=== PATIENT | male | born 1960 | race Caucasian/White ===

== ENCOUNTER 2016-12-31 20:46 | Emergency (ER) | payer MEDICAID ==
[~2016-12-31] VITALS: Ht 165.1 cm; Wt 113.4 kg
[2016-12-31] MEDS ORDERED: Morphine Sulfate 4mg/ml Inj IVP ONE (21:30)
[2016-12-31 21:32] LABS: MEAN CORPUSCULAR HEMOGLOBIN 33.2 PG (27.0-31.0); MEAN CORPUSCULAR HGB CONC 34.9 G/DL (32.0-36.0); MEAN CORPUSCULAR VOLUME 95 FL (80-99); PLATELET COUNT 221 K/UL (150-450); RED BLOOD COUNT 4.64 M/UL (4.70-6.10); RED CELL DISTRIBUTION WIDTH 11.5 % (11.6-14.8); WHITE BLOOD COUNT 19.2 K/UL (4.8-10.8)
[2016-12-31 21:42] LABS: ALANINE AMINOTRANSFERASE 77 U/L (3-41); ALBUMIN/GLOBULIN RATIO 1.1 (1.0-2.7); ALCOHOL 221 mg/dL; ANION GAP 22 (5-15); ASPARTATE AMINO TRANSFERASE 86 U/L (5-40); CALCIUM 8.7 mg/dL (8.6-10.2); CARBON DIOXIDE 18 mEQ/L (20-30); CHLORIDE 102 mEQ/L (98-107); CREATININE 1.8 mg/dL (0.7-1.2); GLOMERULAR FILTRATION RATE 38.8 mL/min (>60); HEMOLYSIS 17; POTASSIUM 3.8 mEQ/L (3.4-4.9); SODIUM 142 mEQ/L (135-145); TOTAL PROTEIN 7.6 g/dL (6.6-8.7)
[2016-12-31 21:51] VITALS: BP 137/94
[2016-12-31 22:33] LABS: LYMPHOCYTES % (MANUAL) 39 % (20-45); NEUTROPHILS % (MANUAL) 55 % (45-75); TOTAL CELLS COUNTED 100
[2016-12-31 22:34] LABS: BAND NEUTROPHILS % (MANUAL) 0 % (0-8); BASOPHILS % (MANUAL) 0 % (0-2); EOSINOPHILS % (MANUAL) 0 % (0-3); PLATELET ESTIMATE ADEQUATE; PLATELET MORPHOLOGY NORMAL
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
[2016-12-31 23:49] VITALS: BP 128/62
[2017-01-01 01:30] VITALS: BP 133/74
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
--- NOTE | 2017-01-01 10:47 | Diagnostic Imaging Report ---
Indication: Neck pain. Technique: Continuous helical imaging of the cervical spine was obtained transaxially from the skull base to the upper thoracic spine. 2-D coronal and sagittal reformatted images were obtained. Total Dose length Product (DLP): [address] Dose Index Volume (CTDIvol): 29 mGy Comparison: None Findings: There is motion artifact which limits evaluation. There is no fracture or malalignment identified. There is narrowing of the C6-7 disc with endplate spur formation. There is a suggestion of foraminal stenosis at this level as well. Impression: No acute injury identified. Degenerative disc disease at C6-7. [facility] has communicated the preliminary results to the Emergency Department. Their findings are largely concordant with this report. The CT scanner at [facility] is accredited by the [employer] and the scans are performed using protocols designed to limit radiation exposure to as low as reasonably achievable to attain images of sufficient resolution adequate for diagnostic evaluation.
--- NOTE | 2017-01-01 10:48 | Diagnostic Imaging Report ---
Indication: Headache Technique: Contiguous 5 mm thick transaxial imaging of the head obtained in a Siemens Sensation [address] scanner[address] Soft tissue and bone windows generated. Total Dose length Product (DLP): [address] Dose Index Volume (CTDIvol): 70.38 mGy Comparison: none Findings: The size and configuration of the cortical sulci, basal cisterns, and ventricles are within normal limits for age. There is no mass effect, midline shift, or edema identified. There is no evidence of acute hemorrhage or abnormal intra-axial or extra-axial fluid collections. The bones and soft tissues are unremarkable. Ethmoid sinus opacification noted. Impression: No mass effect, edema or acute bleed. Ethmoid sinusitis There is some artifact limiting evaluation. The CT scanner at [facility] is accredited by the [employer] and the scans are performed using protocols designed to limit radiation exposure to as low as reasonably achievable to attain images of sufficient resolution adequate for diagnostic evaluation.
--- NOTE | 2017-01-05 16:13 | Cardiology Report ---
APPROVED REPORT EKG Measurement Heart [id number] Normal sinus rhythm Right bundle branch block Abnormal ECG
== END 2017-01-01 01:30 | disposition short-term general hospital (02) ==
LOC: EDBD 20:46 → EMR 23:45
DX: S27.1XXA Traumatic hemothorax, initial encounter (principal); S22.49XA Multiple fractures of ribs, unspecified side, initial encounter for closed fracture; K43.9 Ventral hernia without obstruction or gangrene; F10.129 Alcohol abuse with intoxication, unspecified; V43.52XA Car driver injured in collision with other type car in traffic accident, initial encounter; Y92.410 Unspecified street and highway as the place of occurrence of the external cause; Y99.8 Other external cause status
CPT/HCPCS: 36415; 70450; 71250; 72125; 74176; 80053; 80329; 85007; 85025; 85610; 85730; 93005; 96360; 96374; 99285; J2270